=== PATIENT | female | born 1980 | race Caucasian/White ===

== ENCOUNTER 2025-06-03 09:37 | Emergency (ER) | payer OTHER ==
[~2025-06-03] VITALS: Ht 154.9 cm; Wt 99.8 kg
[2025-06-03] MEDS ORDERED: PRED50TA57 PO (14:33)
[2025-06-03 14:40] VITALS: BP 133/80; TEMP 97.8; O2SAT 100
== END 2025-06-03 15:01 | disposition home or self-care (01) ==
LOC: M ED 09:37
DX: E05.00 Thyrotoxicosis with diffuse goiter without thyrotoxic crisis or storm (principal); H05.20 Unspecified exophthalmos; Z88.5 Allergy status to narcotic agent; Z91.013 Allergy to seafood; Z79.52 Long term (current) use of systemic steroids
CPT/HCPCS: 70480; 96374; 99284; J2919